=== PATIENT | female | born 1955 | race Caucasian/White ===

== ENCOUNTER 2019-03-30 15:00 | Outpatient (CLI) | payer BC | END 2019-03-30 15:30 | disposition home or self-care (01) | LOC: D.MAMMO 15:00 | PROVIDERS: ATTEND Family Medicine | DX: Z12.31 Encounter for screening mammogram for malignant neoplasm of breast (principal) ==

== ENCOUNTER → 2019-06-11 11:30 | Outpatient (CLI) | payer BC | END | disposition home or self-care (01) | LOC: D.MAMMO 04-12 10:00 → D.US 04-12 11:00 → D.MAMMO 05-03 14:30 | PROVIDERS: ATTEND General Practice | DX: R92.8 Other abnormal and inconclusive findings on diagnostic imaging of breast (principal) ==

== ENCOUNTER → 2020-01-18 19:26 | Outpatient (CLI) | payer BC | END | disposition home or self-care (01) | LOC: D.MAMMO 12-24 10:00 | PROVIDERS: ATTEND General Practice | DX: R92.8 Other abnormal and inconclusive findings on diagnostic imaging of breast (principal) ==

== ENCOUNTER 2020-03-14 04:44 | Emergency (ER) | payer BC ==
[~2020-03-14] VITALS: Ht 157.5 cm; Wt 89.1 kg
[2020-03-14 04:46] VITALS: Ht 157.5 cm; Wt 89.1 kg
[2020-03-14] MEDS ORDERED: NEURONTIN 300300 MG PO (04:48)
[2020-03-14] MEDS ORDERED: ESTRACE 0.5 MG0.5 MG PO (04:49)
[2020-03-14] MEDS ORDERED: LISINOPRIL20 MG PO (04:50)
[2020-03-14] MEDS ORDERED: IBUPROFEN800 MG PO (04:50)
[2020-03-14] MEDS ORDERED: HYDROCHLOROTHIA25 MG PO (04:51)
[2020-03-14 04:58] LABS: BASOPHILS 0.3 % (0-2); EOSINOPHILS 1.3 % (0-7); HEMATOCRIT 42.6 % (36.0-48.0); HEMOGLOBIN 13.5 g/dL (12-16); IMMATURE GRANULOCYTES 0.3 % (0-5); LYMPHOCYTES 19.3 % (15-50); MCH 27.4 pg (26.0-34.0); MCHC 31.7 g/dL (31.0-37.0); MCV 86.4 fL (80.0-100.0); MEAN PLATELET VOLUME 10.9 fL (7.4-10.4); MONOCYTES 5.1 % (2-11); NEUTROPHILS 73.7 % (40-80); PLATELET COUNT 229 10x3/uL (130-400); RBC 4.93 10x6/uL (4.00-5.40); RDW 15.8 % (11.5-14.5); WBC 9.4 10x3/uL (4.8-10.8)
[2020-03-14] MEDS ORDERED: METHADONE (05:22)
[2020-03-14 05:44] LABS: CALC OSMOLALITY 286 mosm/kg (275-300); CALCIUM 8.7 mg/dL (8.5-10.1); CARBON DIOXIDE 30.5 mmol/L (21.0-32.0); CHLORIDE - SERUM 104 mmol/L (98-107); CREATININE - SERUM 0.9 mg/dL (0.6-1.3); GLUCOSE 134 mg/dL (74-106); POTASSIUM - SERUM 3.3 mmol/L (3.5-5.1); SODIUM 141 mmol/L (136-145); UREA NITROGEN 23 mg/dL (7-18); eGFR NON AFRICAN AMERICAN 67 mL/min (90-120)
[2020-03-14 05:56] LABS: ALBUMIN 3.7 g/dL (3.4-5.0); ALKALINE PHOSPHATASE 112 U/L (30-120); ALT (SGPT) 32 U/L (10-68); BILIRUBIN - TOTAL 0.23 mg/dL (0.2-1.3); LIPASE 119 U/L (73-393)
[2020-03-14 05:59] LABS: TROPONIN-I < 0.017 ng/mL (0.000-0.060)
[2020-03-14 06:05] LABS: BILIRUBIN NEGATIVE (NEGATIVE); GLUCOSE 100 mg/dL (NEGATIVE); KETONE NEGATIVE (NEGATIVE); NITRITE NEGATIVE (NEGATIVE); UROBILINOGEN NORMAL (NORMAL)
[2020-03-14 06:06] LABS: BACTERIA FEW /hpf (NEGATIVE); EPITHELIAL CELLS 0-5 /hpf (0-5); RED CELLS - URINE 0-5 /hpf (0-5); WHITE CELLS - URINE NSEEN /hpf (NEGATIVE)
[2020-03-14] MEDS ORDERED: ZOFRAN ODT4 MG/UDTAB PO (08:24)
[2020-03-14 08:36] VITALS: BP 191/78
== END 2020-03-14 08:37 | disposition home or self-care (01) ==
LOC: D.ER 04:44
PROVIDERS: Family Medicine
DX: R11.2 Nausea with vomiting, unspecified (principal); G89.29 Other chronic pain; R19.7 Diarrhea, unspecified

== ENCOUNTER → 2020-04-06 08:49 | Outpatient (CLI) | payer BC ==
[2020-03-14 04:46] VITALS: BMI 35.9
[~2020-04-06 08:49] MED LIST: ESTRACE 0.5 MG0.5 MG PO; HYDROCHLOROTHIA25 MG PO; IBUPROFEN800 MG PO; LISINOPRIL20 MG PO; METHADONE; NEURONTIN 300300 MG PO; ZOFRAN ODT4 MG/UDTAB PO
== END | disposition home or self-care (01) ==
LOC: D.RAD 03-10 08:30
PROVIDERS: ATTEND General Practice
DX: R13.10 Dysphagia, unspecified (principal)

== ENCOUNTER → 2021-03-08 10:00 | Outpatient (CLI) | payer BC ==
[2020-03-14 04:46] VITALS: BMI 35.9
== END | disposition home or self-care (01) ==
LOC: D.MAMMO 01-29 10:30
PROVIDERS: ATTEND General Practice
DX: Z12.31 Encounter for screening mammogram for malignant neoplasm of breast (principal)